=== PATIENT | female | born 1955 | race Caucasian/White ===

== ENCOUNTER 2022-05-02 09:32 | Outpatient (CLI) | payer MEDICARE, OTHER ==
[2022-05-02] MEDS ORDERED: Iopamidol 370 76% 100 ML VIAL ONE (15:02)
== END 2022-05-02 09:33 | disposition home or self-care (01) ==
LOC: CT 09:32
PROVIDERS: ATTEND Nurse Practitioner Family
DX: R91.8 Other nonspecific abnormal finding of lung field (principal); E04.1 Nontoxic single thyroid nodule; K76.9 Liver disease, unspecified
CPT/HCPCS: 71270; 82565; Q9967

== ENCOUNTER 2022-06-15 13:22 | Outpatient (CLI) | payer MEDICARE, OTHER | END 2022-06-15 13:23 | disposition home or self-care (01) | LOC: ULT 13:22 | PROVIDERS: ATTEND Nurse Practitioner Family | DX: E04.1 Nontoxic single thyroid nodule (principal); E07.89 Other specified disorders of thyroid | CPT/HCPCS: 76536 ==